=== PATIENT | female | born 1990 | race Caucasian/White ===

== ENCOUNTER 2017-10-11 15:05 | Emergency (ER) | payer MEDICAID ==
[~2017-10-11] VITALS: Ht 157.5 cm; Wt 59.0 kg
[2017-10-11] MEDS ORDERED: METHYLPREDNISOLONE SOD SUCC 125 MG/2 ML VIAL IM ONE (19:15)
[2017-10-11] MEDS ORDERED: IBUPROFEN 600MG TABLET PO ONE (19:15)
[2017-10-11] MEDS ORDERED: DIPHENHYDRAMINE 50MG/ML VIAL IM ONE (19:15)
[2017-10-11 21:05] VITALS: BP 112/65
== END 2017-10-11 21:11 | disposition home or self-care (01) ==
LOC: ER 16:23
DX: L30.9 Dermatitis, unspecified (principal); J20.9 Acute bronchitis, unspecified; J45.909 Unspecified asthma, uncomplicated
CPT/HCPCS: 71045; 81025; 96372; 99284; J1200; J2930